=== PATIENT | female | born 1990 | race Two or more races ===

== ENCOUNTER 2016-07-24 02:43 | Emergency (ER) | payer SELFPAY ==
--- NOTE | ~2016-07-24 | ER ---
PATIENT'S NAME: [facility] AGE: 25 Y [address] ROOM: [place] [id number] LOCATION: [facility] ADMIT DATE: 07/24/2016 ER/Outpatient Report DISCHARGE DATE: 07/24/2016 FAMILY PHYSICIAN: PHYSICIAN, NO ATTENDING PHYSICIAN: Tyler Coles Time of Arrival: 0243 hours. Time of Evaluation: 0250 hours. CHIEF COMPLAINT: Right breast pain. HISTORY OF PRESENT ILLNESS: The patient is a 25-year-old female, who presents to emergency department today with a chief complaint of right breast pain. She reports this started 3 days prior to arrival. She is 5 months . Pain got worse tonight. It is a sharp pain, it is worse with movement, currently 3/10 in severity. She had tried some ibuprofen. Denies any fevers or chills. No nausea or vomiting. No diarrhea or constipation. No headache. No chest pain. No shortness of breath. No cough. PAST MEDICAL HISTORY: None. PAST SURGICAL HISTORY: . SOCIAL HISTORY: The patient denies any tobacco, alcohol, or illicit drug use. ALLERGIES: NO KNOWN DRUG ALLERGIES. MEDICATIONS: vitamins. REVIEW OF SYSTEMS: All systems are reviewed by myself and are negative with the exception of those discussed in HPI and past medical history. PHYSICAL EXAMINATION: VITAL SIGNS: Weight 73.8 kg, blood pressure 116/72, pulse 81, respiratory rate 18, temperature 97.8, oxygen saturation 98% on room air. GENERAL: The patient is a 25-year-old female, who appears her stated age, in no acute distress at this time. PATIENT'S NAME: [facility] AGE: 25 Y [address] ROOM: [place], [place] [address] LOCATION: [facility] ADMIT DATE: 07/24/2016 ER/Outpatient Report DISCHARGE DATE: 07/24/2016 FAMILY PHYSICIAN: PHYSICIAN, NO ATTENDING PHYSICIAN: Tyler Coles HEENT: Head: Normocephalic, atraumatic. Pupils are equal, round, and reactive to light and accommodation. Extraocular motions are intact. Nares are patent bilaterally. TMs are clear. Oropharynx is clear. NECK: Supple. There is no nuchal rigidity. CARDIOVASCULAR: Regular rate and rhythm. No murmurs, rubs, or gallops. LUNGS: Clear to auscultation bilaterally. No wheezes, rales, or rhonchi. ABDOMEN: Soft, nontender, and nondistended. No rebound, rigidity, or guarding. BREAST: The patient has tenderness to palpation to the 12 to 3 o'clock position. There are no masses palpated. No erythema noted. SKIN: Warm and dry. There are no rashes or lesions noted. LABORATORY DATA AND X-RAYS: None. IMPRESSION: 1. Right breast pain, unclear etiology. 2. . 3. Initial visit. EMERGENCY DEPARTMENT COURSE: The patient was brought back to the examination room. Seen and evaluated by myself. History and physical were performed as described above. The examination is essentially unremarkable. She is certainly tender. This certainly may be an early mastitis. I have written a prescription for Keflex. I have asked that the patient follows up with primary care doctor in [facility] in 2 days for reevaluation. I have discussed [id number]-[id number] instructions including worsening symptoms or any other concerns to return to the emergency department as soon as possible. The patient is agreeable without further questions. DISPOSITION: The patient was discharged home in good condition. DO SHER MULLINS/modl /[id number] d: 07/24/168 t: 07/24/16 0601, OUTPATIENT REPORT
== END 2016-07-24 03:10 | disposition disaster alternative care site (69) ==
LOC: GMED 02:43
DX: N64.4 Mastodynia (principal)